=== PATIENT | female | born 1985 | race Caucasian/White ===

== ENCOUNTER 2017-10-10 14:23 | Emergency (ER) | payer MEDICAID ==
[2017-10-10 14:23] VITALS: BMI 23.4
[2017-10-10 15:11] VITALS: BP 104/67; PULSE 69; RESP 14; TEMP 98.9; O2SAT 100
--- NOTE | 2017-10-10 15:53 | ED PDOC ---
HPI: General Adult Time Seen by Provider: 10/10/17 14:50 Chief Complaint (Nursing): ENT Problem Chief Complaint (Provider): Sinus pressure History Per: Patient History/Exam Limitations: no limitations Onset/Duration Of Symptoms: Intermittent Episodes (occurring for 5 months) Additional Complaint(s): Shaunna Friedman is a 31 y/o female who presents to the emergency department with intense sinus pressure that radiates to the middle of her forehead and under eyes bilaterally associated with nasal discharge on and off for 5 months. She is unable to open her mouth or sleep because of the pressure. Patient also states she saw something in her nose that causes pain. Reports taking Motrin and Benadryl (last dose 8 hours ago) with no relief. Denies fever and chills. PMD: Con Hendricks MD Past Medical History Reviewed: Historical Data, Nursing Documentation, Vital Signs Vital Signs: Last Vital Signs Temp 98.9 F 10/10/17 15:10 Pulse 69 10/10/17 15:10 Resp 14 10/10/17 15:10 BP 104/67 10/10/17 15:10 Pulse Ox 100 10/10/17 17:23 - Medical History PMH: Migraine - Surgical History Surgical History: - Family History Family History: States: Unknown Family Hx - Social History Current smoker - smoking cessation education provided: Yes (Light Smoker < 10 Cigarettes Daily) Ex-Smoker (has not smoked in the last 12 months): No Alcohol: None Drugs: Denies - Immunization History Hx Tetanus Toxoid Vaccination: Yes Hx Influenza Vaccination: Yes Hx Pneumococcal Vaccination: No - Home Medications Home Medications: Ambulatory Orders Medication Instructions Recorded Magnesium Citrate [Good Neighbor 150 ml PO DAILY PRN #1 bottle 01/22/17 Pharmacy Magnesium Citrate] Topiramate [Topamax] 25 mg PO DAILY 01/22/17 Fluticasone Propionate [Flonase] 2 spr IN DAILY #1 bottle 10/10/17 Loratadine/Pseudoephedrine 1 each PO DAILY #14 tab.er.24h 10/10/17 [Claritin-D 24 Hour Tablet] - Allergies Allergies/Adverse Reactions: Allergies Allergy/AdvReac Type Severity Reaction Status Date / Time No Known Allergies Allergy Verified 10/18/16 08:54 Review of Systems ROS Statement: Except As Marked, All Systems Reviewed And Found Negative Constitutional: Negative for: Fever, Chills ENT: Positive for: Nose Pain, Nose Discharge, Other (Intense pressure that radiates from the middle of forehead to under eyes bilaterally) Physical Exam - Reviewed Nursing Documentation Reviewed: Yes Vital Signs Reviewed: Yes - Physical Exam Appears: Positive for: Non-toxic, No Acute Distress Head Exam: Positive for: ATRAUMATIC, NORMAL INSPECTION, NORMOCEPHALIC Skin: Positive for: Normal Color, Warm, Dry ENT: Positive for: Normal ENT Inspection, Pharynx Is (clear) Cardiovascular/Chest: Positive for: Regular Rate, Rhythm. Negative for: Murmur Respiratory: Positive for: Normal Breath Sounds. Negative for: Accessory Muscle Use, Respiratory Distress Neurologic/Psych: Positive for: Alert, Oriented (x 3) - ECG O2 Sat by Pulse Oximetry: 100 (RA) Pulse Ox Interpretation: Normal Medical Decision Making Medical Decision Making: Time: 1500 Initial Impression: Sinus pressure Initial Plan: --given prescription and will be discharged home Upon provider reevaluation patient is medically stable and requires no further treatment in the ED at this time. Patient will be discharged home with Rx for Flonase and Claritin. Counseling was provided and all questions were answered regarding diagnosis and need for follow up with Con Durand MD. Clinical Impression: Sinus pain Scribe Attestation: Documented by Lexie Collado, acting as a scribe for Hanny Rodriguez MD. Provider Scribe Attestation: All medical record entries made by the Scribe were at my direction and personally dictated by me. I have reviewed the chart and agree that the record accurately reflects my personal performance of the history, physical exam, medical decision making, and the department course for this patient. I have also personally directed, reviewed, and agree with the discharge instructions and disposition. Disposition - Clinical Impression Clinical Impression: Sinus pain - Disposition Referrals: Con Durand MD [Family Provider] - Disposition: Routine/Home Condition: STABLE Prescriptions: Fluticasone Propionate [Flonase] 2 spr IN DAILY #1 bottle Loratadine/Pseudoephedrine [Claritin-D 24 Hour Tablet] 1 each PO DAILY #14 tab.er.24h Instructions: Sinusitis (ED) Forms: [employer] (Bulgarian)
== END 2017-10-10 15:54 | disposition home or self-care (01) ==
LOC: H.ER 14:23
DX: J32.9 Chronic sinusitis, unspecified (principal)

== ENCOUNTER 2018-03-13 20:21 | Emergency (ER) | payer MEDICAID ==
[2018-03-13 20:24] VITALS: BMI 26.5
[2018-03-13 20:26] VITALS: BP 107/71; PULSE 73; RESP 16; TEMP 97.6; O2SAT 100
[2018-03-13] MEDS ORDERED: Dexamethasone 4 mg/1 ml ONE (20:58)
--- NOTE | 2018-03-13 21:05 | ED PDOC ---
HPI: General Adult Time Seen by Provider: 03/13/18 20:28 Chief Complaint (Nursing): ENT Problem Chief Complaint (Provider): ENT Problem History Per: Patient History/Exam Limitations: no limitations Onset/Duration Of Symptoms: Days (x2 weeks) Current Symptoms Are (Timing): Still Present Additional Complaint(s): 34 y/o female with a pmhx of depression, who presents to the ED complaining of throat pain with associated pain when swallowing and talking x2 weeks. Patient states she saw her PMD Monday and had a negative rapid strep. States she was advised to take 600mg Motrin for pain as needed which she states she has been taking (last dose last night). She says persistence of pain prompted ED visit. Denies any fever, chills, sick contacts, recent travel, cough, shortness of breath, ear pain, nausea, vomiting, diarrhea, recent dental work, or dental pain. Patient reports she is currently on her period. PMD: Dr. Durand Past Medical History Reviewed: Historical Data, Nursing Documentation, Vital Signs Vital Signs: Last Vital Signs Temp 97.6 F 03/13/18 20:24 Pulse 73 03/13/18 20:24 Resp 16 03/13/18 20:24 BP 107/71 03/13/18 20:24 Pulse Ox 100 03/13/18 21:59 - Medical History PMH: Depression, Migraine - Surgical History Surgical History: - Family History Family History: States: Unknown Family Hx - Social History Current smoker - smoking cessation education provided: Yes (3-4 cigarettes a day ) Alcohol: None Drugs: Denies - Home Medications Home Medications: Ambulatory Orders Medication Instructions Recorded FLUoxetine [Fluoxetine HCl] 20 mg PO DAILY 11/08/17 Ibuprofen [Motrin Tab] 600 mg PO Q8 #30 tab 11/08/17 - Allergies Allergies/Adverse Reactions: Allergies Allergy/AdvReac Type Severity Reaction Status Date / Time No Known Allergies Allergy Verified 03/13/18 20:24 Review of Systems ROS Statement: Except As Marked, All Systems Reviewed And Found Negative Constitutional: Negative for: Fever, Chills ENT: Positive for: Throat Pain. Negative for: Ear Pain, Mouth Pain Respiratory: Negative for: Cough, Shortness of Breath Gastrointestinal: Negative for: Nausea, Vomiting, Diarrhea Physical Exam - Reviewed Nursing Documentation Reviewed: Yes Vital Signs Reviewed: Yes - Physical Exam Comments: GENERAL APPEARANCE: Patient is awake, alert, oriented x3, in no acute distress. SKIN: Warm, dry; (-) cyanosis. EYES: (-) conjunctival pallor, (-) icterus. ENMT: TMs: (-) erythema, (-) bulging (-) vesicles. Pharynx: (+) tonsillar erythema, (+) 2+ tonsillar hypertrophy, (-) tonsillar exudate. Airway patent, ( -) stridor, (-) drooling. Mucous membranes are moist. Uvula midline. NECK: Supple, FROM (-) stiffness, (-) meningismus, (-) lymphadenopathy. CHEST AND RESPIRATORY: (-) retractions, (-) rales, (-) rhonchi, (-) wheezes; breath sounds equal bilaterally. Speaking in full sentences, respirations even and nonlabored. HEART AND CARDIOVASCULAR: (-) irregularity; (-) murmur, (-) gallop. EXTREMITIES: (-) deformity NEURO AND PSYCH: Mental status as above; gait steady. (-) facial asymmetry (-) aphasia (-) slurred speech. - ECG O2 Sat by Pulse Oximetry: 100 (RA) Pulse Ox Interpretation: Normal Medical Decision Making Medical Decision Makin:29 Initial Impression: Viral pharyngitis, throat pain Plan: --Decadron 10mg IM --Toradol 30mg IM --Throat culture --Rapid strep group A antigen (Patient is requesting repeat strep test in ED) --Reevaluation 2154 Rapid Strep: Negative. Throat culture pending. On re-evaluation, patient reports improvement of symptoms. On exam, patient remains AAOx3, in no acute distress. On exam, neck is supple, lungs CTA, cardiac RRR, neuro exam shows no focal findings. VSS, stable for discharge. Diagnostic results d/w the patient in great detail. Dx of acute throat pain, viral pharyngitis d/w the patient. Based on history, exam and diagnostic results plan will be for discharge and outpatient follow up. Advised to follow up with primary care physician in 1-2 days without fail. Advised to take medication as prescribed. Return to the emergency room at any time for any new or worsening symptoms. Patient states she fully agrees with and understands discharge instructions. States that she agrees with the plan and disposition. Verbalized and repeated discharge instructions and plan. I have given the patient opportunity to ask any additional questions. Scribe Attestation: Documented by Jose Carlos Barrera, acting as a scribe for GUADALUPE Mendiola. Provider Scribe Attestation: All medical record entries made by the Scribe were at my direction and personally dictated by me. I have reviewed the chart and agree that the record accurately reflects my personal performance of the history, physical exam, medical decision making, and the department course for this patient. I have also personally directed, reviewed, and agree with the discharge instructions and disposition. Disposition - Clinical Impression Clinical Impression: Throat pain in adult, Viral pharyngitis - Patient ED Disposition Is Patient to be Admitted: No Counseled Patient/Family Regarding: Studies Performed, Diagnosis, Need For Followup, Rx Given - Disposition Disposition: Routine/Home Disposition Time: 21:56 Condition: STABLE Additional Instructions: CONTINUE IBUPROFEN FROM PMD. USE TYLENOL NEEDED FOR ADDITIONAL PAIN CONTROL. FOLLOW UP WITH PMD IN 1-2 DAYS FOR FURTHER EVALUATION. Instructions: Viral Pharyngitis, Sore Throat in Adults Forms: [email or web address] (Khmer) Print Language: ESTONIAN - POA Present On Arrival: None Results - Lab Results Lab Results: 03/13/18 21:20 Grp A Beta Strep Ag Negative
== END 2018-03-13 23:12 | disposition home or self-care (01) ==
LOC: H.ER 20:21
DX: J02.9 Acute pharyngitis, unspecified (principal); F17.210 Nicotine dependence, cigarettes, uncomplicated; F32.9 Major depressive disorder, single episode, unspecified
CPT/HCPCS: 87070; 87430; 96372; 99282; J1100; J1885

== ENCOUNTER 2019-03-01 09:55 | Emergency (ER) | payer MEDICAID ==
[2019-03-01 10:00] VITALS: O2SAT 99; BMI 29.8
[2019-03-01 11:51] LABS: BASO % 0.6 % (0.0-2.0); EOS # 0.1 K/uL (0.0-0.7); EOS % 1.5 % (0.0-4.0); HEMOGLOBIN 14.3 g/dL (12.0-16.0); LYMPH # 1.9 K/uL (1.0-4.3); LYMPH % 23.9 % (20.0-40.0); MEAN CELL VOLUME 93.2 fl (81.0-99.0); MEAN CORPUSCULAR HEMOGLOBIN 31.6 pg (27.0-31.0); MEAN CORPUSCULAR HGB CONC 33.9 g/dL (33.0-37.0); MEAN PLATELET VOLUME 7.6 fl (7.2-11.7); MONO # 0.5 K/uL (0.0-0.8); MONO % 6.5 % (0.0-10.0); NEUT # 5.4 K/uL (1.8-7.0); NEUT % 67.5 % (50.0-75.0); RBC 4.51 Mil/uL (3.80-5.20); RED CELL DISTRIBUTION WIDTH 12.5 % (11.5-14.5)
[2019-03-01 12:02] LABS: ALB/GLOB RATIO 1.3 (1.0-2.1); ALBUMIN 4.6 g/dL (3.5-5.0); ALT/SGPT 34 U/L (9-52); AST/SGOT 45 U/L (14-36); BLOOD UREA NITROGEN 12 mg/dl (7-17); CALCIUM 9.7 mg/dL (8.4-10.2); GFR NON-AFRICAN AMERICAN > 60; LIPASE 42 U/L (23-300)
--- NOTE | 2019-03-01 12:19 | ED PDOC ---
HPI: Abdomen Time Seen by Provider: 03/01/19 10:26 Chief Complaint (Nursing): Abdominal Pain Chief Complaint (Provider): Abdominal Pain History Per: Patient History/Exam Limitations: no limitations Onset/Duration Of Symptoms: Other (2 months) Additional Complaint(s): 33 y/o female presents to the ED complaining of abdominal extension pain thats been ongoing for 2 months. Patient states she decided to come today for no specific reason. She reports she has epigastric intermittent when she eats and during the day, but not at night. Patient states she vomit but not every day. Patient states she went to see her Dr. Pack (PMD) but wasnt given any prescription. Patient reports her mom has history of pancreatic cancer. She admits drinking and smoking occasionally. Patient denies any diarrhea, fever, or bloody stools. PMD: Dr. Durand Past Medical History Reviewed: Historical Data, Nursing Documentation, Vital Signs Vital Signs: Last Vital Signs Temp 98.7 F 03/01/19 10:00 Pulse 82 03/01/19 10:00 Resp 16 03/01/19 10:00 BP 116/77 03/01/19 10:00 Pulse Ox 99 03/01/19 10:00 - Medical History PMH: Anxiety, Depression, Migraine, Post Traumatic Stress Disorder - Surgical History Surgical History: - Family History Family History: States: Unknown Family Hx - Immunization History Hx Tetanus Toxoid Vaccination: No Hx Influenza Vaccination: No Hx Pneumococcal Vaccination: No - Home Medications Home Medications: Ambulatory Orders Medication Instructions Recorded DULoxetine [Cymbalta] 30 mg PO DAILY 02/18/19 Famotidine [Pepcid] 20 mg PO DAILY #14 tab 03/01/19 - Allergies Allergies/Adverse Reactions: Allergies Allergy/AdvReac Type Severity Reaction Status Date / Time No Known Allergies Allergy Verified 09/27/18 13:17 Review of Systems ROS Statement: Except As Marked, All Systems Reviewed And Found Negative Constitutional: Negative for: Fever Gastrointestinal: Positive for: Vomiting, Abdominal Pain. Negative for: Diarrhea, Melena Physical Exam - Reviewed Nursing Documentation Reviewed: Yes Vital Signs Reviewed: Yes - Physical Exam Appears: Positive for: Non-toxic, No Acute Distress Head Exam: Positive for: ATRAUMATIC, NORMOCEPHALIC Skin: Positive for: Normal Color, Warm, Dry Eye Exam: Positive for: EOMI, Normal appearance, PERRL ENT: Positive for: Normal ENT Inspection Neck: Positive for: Normal, Painless ROM, Supple Cardiovascular/Chest: Positive for: Regular Rate, Rhythm. Negative for: Murmur Respiratory: Positive for: Normal Breath Sounds. Negative for: Respiratory Distress Gastrointestinal/Abdominal: Positive for: Normal Exam, Soft, Tenderness (Mild epigastric ) Back: Positive for: Normal Inspection. Negative for: L CVA Tenderness, R CVA Tenderness Extremity: Positive for: Normal ROM Neurological/Psych: Positive for: Awake, Alert, Normal Tone, Oriented (x3). Negative for: Motor/Sensory Deficits - Laboratory Results Result Diagrams: 03/01/19 11:30 03/01/19 11:30 Lab Results: Total Bilirubin 0.8 mg/dl (0.2-1.3) 03/01/19 11:30 AST 45 U/L (14-36) H D 03/01/19 11:30 ALT 34 U/L (9-52) 03/01/19 11:30 Alkaline Phosphatase 65 U/L (38-126) 03/01/19 11:30 Total Protein 8.3 G/DL (6.3-8.2) H 03/01/19 11:30 Albumin 4.6 g/dL (3.5-5.0) 03/01/19 11:30 Globulin 3.6 gm/dL (2.2-3.9) 03/01/19 11:30 Albumin/Globulin Ratio 1.3 (1.0-2.1) 03/01/19 11:30 Lipase 42 U/L (23-300) 03/01/19 11:30 - ECG O2 Sat by Pulse Oximetry: 99 - Progress Re-evaluation Time: 14:32 Condition: Re-examined, Improved Medical Decision Making Medical Decision Making: Time:1106 Initial Impression: abdominal pain Diff include Acute gastritis, pancreatitis, and gallbladder disease Initial Plan: -CMP -Lipase -CBC - test -Dipstick -Pepcid 20mg IVP -US -reassess Scribe Attestation: Documented by Margo Parker, acting as a scribe for Seth Montero Provider Scribe Attestation: All medical record entries made by the Scribe were at my direction and personally dictated by me. I have reviewed the chart and agree that the record accurately reflects my personal performance of the history, physical exam, medical decision making, and the department course for this patient. I have also personally directed, reviewed, and agree with the discharge instructions and disposition. 1358 FINDINGS: LIVER: Measures 14.0 cm in length. Normal echogenicity of the liver parenchyma. No mass. No intrahepatic bile duct dilatation. GALLBLADDER: Unremarkable. No gallstones. COMMON BILE DUCT: Measures 3 mm. No stones. No dilatation. PANCREAS: Unremarkable as visualized. No mass. No ductal dilatation. RIGHT KIDNEY: Measures 9.0 cm in length. Normal echogenicity. No calculus, mass, or hydronephrosis. AORTA: No aneurysmal dilatation. IVC: Unremarkable. OTHER FINDINGS: None . IMPRESSION: Unremarkable examination. Disposition - Clinical Impression Clinical Impression: Abdominal pain, Cholelithiasis - Patient ED Disposition Is Patient to be Admitted: No Doctor Will See Patient In The: Office Counseled Patient/Family Regarding: Studies Performed, Diagnosis, Need For Followup - Disposition Referrals: Fabian Melendez MD [Staff Provider] - Disposition: Routine/Home Disposition Time: 14:33 Condition: GOOD Additional Instructions: RC TUCKER, thank you for letting us take care of you today. Your provider was Seth Montero MD and you were treated for ABD PAIN. The emergency medical care you received today was directed at your acute symptoms. If you were prescribed any medication, please fill it and take as directed. It may take several days for your symptoms to resolve. Return to the Emergency Department if your symptoms worsen, do not improve, or if you have any other problems. Please contact your doctor or call one of the physicians/clinics you have been referred to that are listed on the Patient Visit Information form that is included in your discharge packet. Bring any paperwork you were given at discharge with you along with any medications you are taking to your follow up visit. Our treatment cannot replace ongoing medical care by a primary care provider outside of the emergency department. Thank you for allowing the [facility] team to be part of your care today. If you had an X-Ray or CT scan: A Radiologist will review the ED reading if any change in treatment is needed we will contact you. Prescriptions: Famotidine [Pepcid] 20 mg PO DAILY #14 tab Instructions: Stomach Ache and Stomach Upset, Gallstones (DC) Forms: [employer] (Tunisian)
--- NOTE | 2019-03-01 13:35 | US ---
Date of service: 03/01/2019 HISTORY: epigastric pain COMPARISON: None. TECHNIQUE: Sonographic evaluation of the right upper quadrant of the abdomen. FINDINGS: LIVER: Measures 14.0 cm in length. Normal echogenicity of the liver parenchyma. No mass. No intrahepatic bile duct dilatation. GALLBLADDER: Unremarkable. No gallstones. COMMON BILE DUCT: Measures 3 mm. No stones. No dilatation. PANCREAS: Unremarkable as visualized. No mass. No ductal dilatation. RIGHT KIDNEY: Measures 9.0 cm in length. Normal echogenicity. No calculus, mass, or hydronephrosis. AORTA: No aneurysmal dilatation. IVC: Unremarkable. OTHER FINDINGS: None . IMPRESSION: Unremarkable examination.
[2019-03-01 15:23] VITALS: BP 110/70; PULSE 75; RESP 15; TEMP 98.3
== END 2019-03-01 14:35 | disposition home or self-care (01) ==
LOC: H.ER 09:55
DX: R10.9 Unspecified abdominal pain (principal); K80.20 Calculus of gallbladder without cholecystitis without obstruction; F43.10 Post-traumatic stress disorder, unspecified; Z86.59 Personal history of other mental and behavioral disorders